=== PATIENT | male | born 1985 | race Caucasian/White ===

== ENCOUNTER 2016-10-01 20:55 | Emergency (ER) | payer SELFPAY ==
[~2016-10-01] VITALS: Ht 180.3 cm; Wt 79.4 kg
[~2016-10-01 20:55] MED LIST: 'PARAFON FORTE500 M1 PO; ANAPROX DS550 MG PO; BACTRIM DS 8001 TA1 PO; BACTRIM DS 8001 TAB PO; CELEXA10 MG PO; CEPHALEXIN500 M1 PO; CLINDAMYCIN HC300 MG PO; COLACE100 MG PO; CYCLOBENZAPRINE10 MG PO; DAYPRO600 M1 PO; FLEXERIL10 MG PO; HYDROCODONE BIT1 T11 PO; IBU800 M1 PO; IBU800 MG PO; KEFLEX500 M1 PO; KEFLEX500 MG PO; MEDROL DOSEPAK4 MG PO; MOTRIN800 MG PO; Motrin,Rufen800 MG PO; NAPROSYN500 MG PO; NKHM; NORCO 325 MG-51 TAB PO; NORFLEX100 MG PO; Orphenadrine C100 MG PO; PARAFON FORTE500 MG PO; PREDNICOT20 MG PO; ROBAXIN500 MG PO; ROBAXIN750 MG PO; SEROQUEL XR200 MG PO; TORADOL10 MG PO; TRAMADOL HCL50 MG PO; TRIMOX500 MG PO; ULTRAM50 MG PO; VICODIN 5-3001 EACH PO
[2016-10-01 21:22] LABS: BILIRUBIN NEGATIVE (NEGATIVE); BLOOD NEGATIVE (NEGATIVE); CLARITY SL CLOUDY (CLEAR); COLOR YELLOW (YELLOW); GLUCOSE NEGATIVE (NEGATIVE); KETONE NEGATIVE (NEGATIVE); LEUKO ESTERASE NEGATIVE (NEGATIVE); NITRITE NEGATIVE (NEGATIVE); PH 8.5 (5.0-9.0); PROTEIN NEGATIVE (NEGATIVE); UROBILINOGEN 0.2 E.U./dl (0.2-1.0)
[2016-10-01 21:34] LABS: URINE REFLEX COMMENT NO (NO); WBC 0-2 wbc/hpf (0-5)
== END 2016-10-01 21:41 | disposition home or self-care (01) ==
LOC: ED 20:55
PROVIDERS: Physician Assistant
DX: Z20.2 Contact with and (suspected) exposure to infections with a predominantly sexual mode of transmission (principal); F17.200 Nicotine dependence, unspecified, uncomplicated

== ENCOUNTER 2016-11-03 20:53 | Emergency (ER) | payer SELFPAY ==
[~2016-11-03] VITALS: Ht 180.3 cm; Wt 79.4 kg
== END 2016-11-03 23:42 | disposition home or self-care (01) ==
LOC: ED 20:53
DX: S16.1XXA Strain of muscle, fascia and tendon at neck level, initial encounter (principal); S09.90XA Unspecified injury of head, initial encounter; F17.200 Nicotine dependence, unspecified, uncomplicated; Y08.89XA Assault by other specified means, initial encounter; Y93.89 Activity, other specified; Y92.89 Other specified places as the place of occurrence of the external cause; Y99.9 Unspecified external cause status

== ENCOUNTER 2016-11-18 02:32 | Emergency (ER) | payer SELFPAY ==
[~2016-11-18] VITALS: Wt 79.4 kg
[2016-11-18] MEDS ORDERED: KEFLEX500 M1 PO (03:03)
[2016-11-18] MEDS ORDERED: ULTRAM50 MG PO (03:03)
[2016-11-18] MEDS ORDERED: Motrin,Rufen800 MG PO (03:03)
== END 2016-11-18 03:32 | disposition home or self-care (01) ==
LOC: ED 02:32
DX: L02.412 Cutaneous abscess of left axilla (principal); L73.2 Hidradenitis suppurativa

== ENCOUNTER 2017-01-02 12:52 | Emergency (ER) | payer SELFPAY ==
[~2017-01-02] VITALS: Wt 79.4 kg
[2017-01-02] MEDS ORDERED: BACTRIM DS 8001 TA1 PO (13:11)
[2017-01-02] MEDS ORDERED: NAPROSYN500 MG PO (13:11)
[2017-01-02] MEDS ORDERED: KEFLEX500 M1 PO (13:11)
== END 2017-01-02 14:32 | disposition home or self-care (01) ==
LOC: ED 12:52
DX: L02.412 Cutaneous abscess of left axilla (principal); F17.200 Nicotine dependence, unspecified, uncomplicated

== ENCOUNTER 2017-01-13 10:41 | Emergency (ER) | payer SELFPAY ==
[~2017-01-13] VITALS: Wt 79.4 kg
[2017-01-13 11:10] LABS: BASO # 0.1 10*3/uL (0.0-0.1); EOS # 0.1 10*3/uL (0.0-0.4); EOS % 1.9 % (1.0-4.0); HEMATOCRIT 42.3 % (42.0-52.0); HEMOGLOBIN 14.6 g/dl (14.0-18.0); LYMPH # 2.9 10*3/uL (1.3-4.4); LYMPH % 41.8 % (27.0-41.0); MEAN CORPUSCULAR HGB 31.7 pg (27.0-31.0); MEAN CORPUSCULAR HGB CONC 34.5 g/dl (33.0-37.0); MEAN PLATELET VOLUME 9.6 fl (9.6-12.3); MONO # 0.6 10*3/uL (0.1-1.0); MONO % 8.9 % (3.0-9.0); NEUT # 3.2 10*3/uL (2.3-7.9); NEUT % 46.3 % (47.0-73.0); PLATELET COUNT AUTOMATED 225 10*3/uL (130-400); RED CELL DISTRI WIDTH 12.6 % (0-14.5)
[2017-01-13 11:24] LABS: ALKALINE PHOSPHATASE 70 U/L (45-117); BILIRUBIN, TOTAL 1.2 mg/dl (0.2-1.0); BUN 8 mg/dl (7-24); CARBON DIOXIDE 28 mmol/L (21-32); CHLORIDE 107 mmol/L (98-107); EST GLOM FILT AFRICAN AMERICAN > 60 ml/min; GLUCOSE 101 mg/dL (65-99); POTASSIUM 3.6 mmol/L (3.5-5.1); SGOT/AST 12 IU/L (3-35); SGPT/ALT 17 U/L (12-78); SODIUM 139 mmol/L (136-145); TOTAL PROTEIN 7.5 gm/dL (6.4-8.2)
== END 2017-01-13 12:26 | disposition home or self-care (01) ==
LOC: ED 10:41
PROVIDERS: Nurse Practitioner Family
DX: B34.9 Viral infection, unspecified (principal); R03.0 Elevated blood-pressure reading, without diagnosis of hypertension; F17.200 Nicotine dependence, unspecified, uncomplicated

== ENCOUNTER 2017-01-18 21:02 | Emergency (ER) | payer SELFPAY ==
[~2017-01-18] VITALS: Ht 439.4 cm; Wt 79.4 kg
[2017-01-18] MEDS ORDERED: CYCLOBENZAPRINE5 M3 PO (22:39)
== END 2017-01-18 23:06 | disposition home or self-care (01) ==
LOC: ED 21:02
DX: M62.838 Other muscle spasm (principal); M54.2 Cervicalgia; F17.200 Nicotine dependence, unspecified, uncomplicated

== ENCOUNTER 2017-01-31 21:48 | Emergency (ER) | payer SELFPAY ==
[~2017-01-31] VITALS: Ht 180.3 cm; Wt 79.4 kg
[~2017-01-31 21:48] MED LIST changes: +CYCLOBENZAPRINE5 M3 PO
[2017-01-31] MEDS ORDERED: CYCLOBENZAPRINE10 MG PO (22:04)
[2017-01-31] MEDS ORDERED: NAPROSYN500 MG PO (22:04)
== END 2017-01-31 22:31 | disposition home or self-care (01) ==
LOC: ED 21:48
DX: S39.012A Strain of muscle, fascia and tendon of lower back, initial encounter (principal); F17.200 Nicotine dependence, unspecified, uncomplicated; X58.XXXA Exposure to other specified factors, initial encounter; Y93.89 Activity, other specified; Y92.89 Other specified places as the place of occurrence of the external cause; Y99.8 Other external cause status

== ENCOUNTER 2017-02-07 00:32 | Emergency (ER) | payer SELFPAY | END 2017-02-07 03:35 | disposition left against medical advice (07) | LOC: ED 00:32 | DX: S06.9X9A Unspecified intracranial injury with loss of consciousness of unspecified duration, initial encounter (principal); H57.02 Anisocoria; M79.652 Pain in left thigh; M79.605 Pain in left leg; F17.200 Nicotine dependence, unspecified, uncomplicated; W10.9XXA Fall (on) (from) unspecified stairs and steps, initial encounter; Y93.01 Activity, walking, marching and hiking; Y92.009 Unspecified place in unspecified non-institutional (private) residence as the place of occurrence of the external cause; Y99.8 Other external cause status ==

== ENCOUNTER 2017-02-16 12:49 | Emergency (ER) | payer SELFPAY ==
[~2017-02-16] VITALS: Ht 180.3 cm; Wt 79.4 kg
[2017-02-16] MEDS ORDERED: CEPHALEXIN500 M1 PO (13:22)
[2017-02-16] MEDS ORDERED: NAPROSYN500 MG PO (13:23)
== END 2017-02-16 13:45 | disposition home or self-care (01) ==
LOC: ED 12:49
DX: L02.412 Cutaneous abscess of left axilla (principal); F17.200 Nicotine dependence, unspecified, uncomplicated

== ENCOUNTER → 2017-02-23 | Emergency (ER) | payer SELFPAY ==
[~2017-02-23] VITALS: Ht 175.2 cm; Wt 90.7 kg
[2017-02-23 01:44] LABS: BASO # 0.1 10*3/uL (0.0-0.1); BASO % 1.6 % (0.0-1.0); EOS # 0.1 10*3/uL (0.0-0.4); EOS % 1.7 % (1.0-4.0); HEMATOCRIT 45.3 % (42.0-52.0); HEMOGLOBIN 15.5 g/dl (14.0-18.0); LYMPH # 2.5 10*3/uL (1.3-4.4); LYMPH % 39.5 % (27.0-41.0); MEAN CELL VOLUME 91.5 fl (80.0-94.0); MEAN CORPUSCULAR HGB 31.3 pg (27.0-31.0); MEAN CORPUSCULAR HGB CONC 34.2 g/dl (33.0-37.0); MEAN PLATELET VOLUME 9.9 fl (9.6-12.3); MONO # 0.6 10*3/uL (0.1-1.0); MONO % 9.6 % (3.0-9.0); NEUT % 47.1 % (47.0-73.0); PLATELET COUNT AUTOMATED 277 10*3/uL (130-400); RED BLOOD COUNT 4.95 10*6/uL (4.50-5.90); RED CELL DISTRI WIDTH 12.1 % (0-14.5); WHITE BLOOD COUNT 6.4 10*3/uL (4.8-10.8)
[2017-02-23 01:54] LABS: ACT PARTIAL THROMBO TIME 28.4 SECONDS (20.8-31.5); INTERNATIONAL NORM RATIO 1.1 (2.0-3.5)
[2017-02-23 02:01] LABS: ALBUMIN 4.2 gm/dl (3.1-4.5); ALKALINE PHOSPHATASE 73 U/L (45-117); BUN 13 mg/dl (7-24); CHLORIDE 104 mmol/L (98-107); CREATININE 0.99 mg/dL (0.70-1.30); MAGNESIUM 2.1 mg/dL (1.5-2.1); POTASSIUM 3.6 mmol/L (3.5-5.1); SGOT/AST 16 IU/L (3-35); SGPT/ALT 17 U/L (12-78); SODIUM 141 mmol/L (136-145)
[2017-02-23 02:03] LABS: TROPONIN I < 0.015 ng/ml (<0.045)
== END ==
LOC: ED 01:28
PROVIDERS: Emergency Medicine Emergency Medical Services
DX: M94.0 Chondrocostal junction syndrome [Tietze] (principal)

== ENCOUNTER 2017-05-16 13:46 | Emergency (ER) | payer SELFPAY ==
[~2017-05-16] VITALS: Ht 154.9 cm; Wt 81.6 kg
[2017-05-16 15:27] LABS: BASO # 0.1 10*3/uL (0.0-0.1); BASO % 0.9 % (0.0-1.0); EOS # 0.1 10*3/uL (0.0-0.4); EOS % 1.3 % (1.0-4.0); HEMATOCRIT 44.2 % (42.0-52.0); HEMOGLOBIN 15.3 g/dl (14.0-18.0); LYMPH # 2.2 10*3/uL (1.3-4.4); LYMPH % 22.5 % (27.0-41.0); MEAN CELL VOLUME 92.3 fl (80.0-94.0); MEAN CORPUSCULAR HGB 31.9 pg (27.0-31.0); MEAN CORPUSCULAR HGB CONC 34.6 g/dl (33.0-37.0); MEAN PLATELET VOLUME 9.6 fl (9.6-12.3); MONO # 0.6 10*3/uL (0.1-1.0); MONO % 6.6 % (3.0-9.0); NEUT # 6.7 10*3/uL (2.3-7.9); NEUT % 68.5 % (47.0-73.0); PLATELET COUNT AUTOMATED 207 10*3/uL (130-400); RED BLOOD COUNT 4.79 10*6/uL (4.50-5.90); RED CELL DISTRI WIDTH 12.6 % (0-14.5); WHITE BLOOD COUNT 9.7 10*3/uL (4.8-10.8)
[2017-05-16 15:35] LABS: ACT PARTIAL THROMBO TIME 28.7 SECONDS (20.8-31.5)
[2017-05-16 15:40] LABS: BUN 9 mg/dl (7-24); CHLORIDE 106 mmol/L (98-107); CREATININE 0.88 mg/dL (0.70-1.30); POTASSIUM 4.4 mmol/L (3.5-5.1); SODIUM 140 mmol/L (136-145)
[2017-05-16 15:50] LABS: ALBUMIN 4.2 gm/dl (3.1-4.5); BILIRUBIN, DIRECT 0.2 mg/dL (0.0-0.2); TOTAL PROTEIN 8.1 gm/dL (6.4-8.2)
== END 2017-05-16 17:15 | disposition short-term general hospital (02) ==
LOC: ED 13:46
PROVIDERS: Emergency Medicine
DX: S06.5X9A Traumatic subdural hemorrhage with loss of consciousness of unspecified duration, initial encounter (principal); S20.219A Contusion of unspecified front wall of thorax, initial encounter; S40.011A Contusion of right shoulder, initial encounter; F17.200 Nicotine dependence, unspecified, uncomplicated; F10.10 Alcohol abuse, uncomplicated; W11.XXXA Fall on and from ladder, initial encounter; Y93.89 Activity, other specified; Y92.89 Other specified places as the place of occurrence of the external cause; Y99.8 Other external cause status

== ENCOUNTER 2017-06-22 15:33 | Emergency (ER) | payer OTHER ==
[~2017-06-22] VITALS: Ht 180.3 cm; Wt 74.8 kg
[2017-06-22] MEDS ORDERED: VIBRAMYCIN100 MG PO (16:53)
== END 2017-06-22 16:59 | disposition home or self-care (01) ==
LOC: ED 15:33
DX: J18.1 Lobar pneumonia, unspecified organism (principal); R68.84 Jaw pain; F17.200 Nicotine dependence, unspecified, uncomplicated

== ENCOUNTER 2018-07-05 14:25 | Emergency (ER) | payer SELFPAY ==
[~2018-07-05] VITALS: Wt 79.8 kg
[~2018-07-05 14:25] MED LIST changes: +VIBRAMYCIN100 MG PO
[2018-07-05] MEDS ORDERED: ROBAXIN500 M1 PO (15:52)
[2018-07-05] MEDS ORDERED: MEDROL DOSEPAK4 MG PO (15:52)
[2018-07-05] MEDS ORDERED: NAPROSYN500 MG PO (15:52)
== END 2018-07-05 15:56 | disposition home or self-care (01) ==
LOC: ED 14:25
DX: S39.012A Strain of muscle, fascia and tendon of lower back, initial encounter (principal); F17.200 Nicotine dependence, unspecified, uncomplicated; Z79.2 Long term (current) use of antibiotics; W00.0XXA Fall on same level due to ice and snow, initial encounter; Y93.89 Activity, other specified; Y92.89 Other specified places as the place of occurrence of the external cause; Y99.8 Other external cause status

== ENCOUNTER 2018-07-23 15:09 | Emergency (ER) | payer SELFPAY ==
[~2018-07-23] VITALS: Ht 180.3 cm; Wt 79.8 kg
[~2018-07-23 15:09] MED LIST changes: +ROBAXIN500 M1 PO
== END 2018-07-23 15:21 | disposition home or self-care (01) ==
LOC: ED 15:09
DX: S00.93XA Contusion of unspecified part of head, initial encounter (principal); R03.0 Elevated blood-pressure reading, without diagnosis of hypertension; Z79.899 Other long term (current) drug therapy; Z79.2 Long term (current) use of antibiotics; W22.8XXA Striking against or struck by other objects, initial encounter; Y93.89 Activity, other specified; Y92.89 Other specified places as the place of occurrence of the external cause; Y99.8 Other external cause status

== ENCOUNTER 2019-11-28 18:44 | Emergency (ER) | payer OTHER ==
[~2019-11-28] VITALS: Ht 180.3 cm; Wt 83.9 kg
== END 2019-11-28 20:10 | disposition home or self-care (01) ==
LOC: ED 18:44
DX: S61.411A Laceration without foreign body of right hand, initial encounter (principal); F17.200 Nicotine dependence, unspecified, uncomplicated; W45.8XXA Other foreign body or object entering through skin, initial encounter; Y93.89 Activity, other specified; Y92.89 Other specified places as the place of occurrence of the external cause; Y99.8 Other external cause status